=== PATIENT | female | born 1980 | race American Indian/Alaskan Native ===

== ENCOUNTER 2021-11-27 21:51 | Emergency (ER) | payer OTHER ==
[2021-11-27 23:23] LABS: Basophils % (Auto) 0.6 % (0.0-1.8); Eosinophils # (Auto) 0.1 K/mm3 (0.0-0.4); Eosinophils % (Auto) 1.1 % (0.0-4.3); Hematocrit 40.2 % (30.3-42.9); Hemoglobin 13.3 gm/dl (10.1-14.3); Lymphocytes # (Auto) 2.2 K/mm3 (1.2-5.4); Lymphocytes % (Auto) 44.2 % (13.4-35.0); Mean Corpuscular HGB Conc 33 % (30-34); Mean Corpuscular Volume 102 fl (79-97); Monocytes # (Auto) 0.6 K/mm3 (0.0-0.8); Monocytes % (Auto) 12.2 % (0.0-7.3); Platelet Count 370 K/mm3 (140-440); Red Blood Count 3.96 M/mm3 (3.65-5.03); Red Cell Distribution Width 13.8 % (13.2-15.2)
[2021-11-27 23:48] LABS: Alanine Aminotransferase 24 units/L (7-56); Albumin 4.2 g/dL (3.9-5); BUN/Creatinine Ratio 11; Blood Urea Nitrogen 9 mg/dL (7-17); Calcium 9.4 mg/dL (8.4-10.2); Hemolysis Index 66
--- NOTE | 2021-11-28 00:01 | Emergency Department Report ---
<MARISSA MCKEON - Last Filed: 11/28/21 06:02> ED Psych HPI - General Chief Complaint: Medical Clearance Stated Complaint: HIGH BLOOD PRESSURE Time Seen by Provider: 11/27/21 23:36 Source: patient, EMS Mode of arrival: Ambulatory Limitations: No Limitations - History of Present Illness Initial Comments: 41-year-old female the past medical history of schizophrenia, hypertension, and daily alcohol use presents to the hospital for medical clearance to go to [place]. Patient states she was attempting to go to [place] to be restarted on her psychiatric medication and for help with alcohol use. She was found to be hypertensive upon presentation to [facility] and therefore transferred to the hospital for medical clearance. Patient is noncompliant with all medications including antihypertensive medications. She complained of a headache which was worse earlier but since improved. No present nausea, vomiting, blurry vision, focal weakness, or numbness. She current denies auditory visual hallucinations, suicidal ideation, homicidal ideation. Last drink was 7 to 8 hours prior to ED presentation. She does not report tremors at this time - Related Data Previous Rx's Medication Instructions Recorded Last Taken Type Amlodipine Besylate [Norvasc] 5 mg PO DAILY #30 tab 11/28/21 Unknown Rx Allergies Allergy/AdvReac Type Severity Reaction Status Date / Time sulfamethoxazole Allergy Hives Verified 11/27/21 22:10 [From Bactrim] trimethoprim [From Bactrim] Allergy Hives Verified 11/27/21 22:10 ED Review of Systems Comment: All other systems reviewed and negative ED Past Medical Hx - Social History Smoking Status: Never Smoker Substance Use Type: Alcohol - Medications Home Medications: Home Medications Medication Instructions Recorded Confirmed Last Taken Type Amlodipine Besylate [Norvasc] 5 mg PO DAILY #30 tab 11/28/21 Unknown Rx ED Physical Exam - General Limitations: No Limitations - Other Other exam information: General: No acute distress Head: Atraumatic Eyes: normal appearance ENT: Moist mucous membranes Neck: Normal appearance, no midline tenderness Chest: Clear to auscultation bilaterally CV: Regular rate and rhythm Abdomen: Soft, normal bowel sounds, nontender, nondistended, no rebound or guarding Back: Normal inspection Extremity: Normal inspection, full range of motion Neuro: Alert O x 3, no facial asymmetry, speech clear, no gross motor sensory deficit, no tremor Psych: Appropriate behavior Skin: No rash ED Course - Reevaluation(s) Reevaluation #1: 11/28/21 00:01 BP and heart rate improved without meds ED Medical Decision Making - Lab Data Result diagrams: 11/27/21 22:52 11/27/21 22:52 - Radiology Data Radiology results: report reviewed CT HEAD WITHOUT CONTRAST INDICATION / CLINICAL INFORMATION: Headache with Hypertension. TECHNIQUE: All CT scans at this location are performed using CT dose reduction for ALARA by means of automated exposure control. COMPARISON: None available. FINDINGS: HEMORRHAGE: None. EXTRA-AXIAL SPACES: Normal in size and morphology for the patient's age. VENTRICULAR SYSTEM: Normal in size and morphology for the patient's age. CEREBRAL PARENCHYMA: No significant abnormality. No acute territorial infarct. MIDLINE SHIFT / HERNIATION: None. CEREBELLUM / BRAINSTEM: No significant abnormality. ORBITS: Normal as visualized SOFT TISSUES: No significant abnormality. SKULL: No significant abnormality. PARANASAL SINUSES / MASTOID AIR CELLS: Normal as visualized ADDITIONAL FINDINGS: None. IMPRESSION: 1. No acute intracranial abnormality. - Medical Decision Making 41-year-old female with schizophrenia and alcohol abuse presents to the hospital after being sent by [facility] for medical clearance. Hypertension and elevated blood pressure improved spontaneously without intervention. Patient has a history of chronic hypertension has been noncompliant with medications. Patient is not on a 1013. We will request mental health evaluation in the morning. Urine collection pending Critical Care Time: No ED Disposition Clinical Impression: Medical clearance for psychiatric admission Disposition: 01 HOME / SELF CARE / HOMELESS Is pt being admited?: No Does the pt Need Aspirin: No Condition: Stable Instructions: Alcohol Use Disorder, Schizophrenia, Hypertension (ED) Prescriptions: Amlodipine Besylate [Norvasc] 5 mg PO DAILY #30 tab <LILIYA HOWARD - Last Filed: 11/28/21 12:25> ED Review of Systems ROS: Stated complaint: HIGH BLOOD PRESSURE Other details as noted in HPI ED Course Vital Signs 11/27/21 11/27/21 11/27/21 22:03 22:24 22:26 Temperature 97.3 F L 97.3 F L Pulse Rate 110 H 77 Respiratory 15 17 Rate Blood Pressure 164/84 Blood Pressure 165/105 [Right] O2 Sat by Pulse 100 100 100 Oximetry 11/27/21 11/27/21 11/27/21 22:30 22:46 23:00 Temperature Pulse Rate 74 67 73 Respiratory 15 13 12 Rate Blood Pressure 167/105 142/86 132/89 Blood Pressure [Right] O2 Sat by Pulse 98 98 97 Oximetry 11/27/21 11/27/21 11/27/21 23:16 23:30 23:46 Temperature Pulse Rate 80 68 73 Respiratory 14 20 13 Rate Blood Pressure 148/94 142/83 156/84 Blood Pressure [Right] O2 Sat by Pulse 97 98 99 Oximetry 11/28/21 11/28/21 11/28/21 00:00 00:04 00:15 Temperature Pulse Rate 87 72 82 Respiratory 14 12 14 Rate Blood Pressure 127/77 127/90 Blood Pressure 127/77 [Right] O2 Sat by Pulse 96 100 95 Oximetry 11/28/21 11/28/21 11/28/21 00:30 00:46 01:00 Temperature Pulse Rate 73 69 67 Respiratory 12 17 13 Rate Blood Pressure 127/90 131/87 127/90 Blood Pressure [Right] O2 Sat by Pulse 98 97 98 Oximetry 11/28/21 11/28/21 11/28/21 01:16 01:30 01:46 Temperature Pulse Rate 68 71 69 Respiratory 12 14 12 Rate Blood Pressure 120/75 131/78 133/95 Blood Pressure [Right] O2 Sat by Pulse 98 95 99 Oximetry 11/28/21 11/28/21 11/28/21 02:00 02:16 02:30 Temperature Pulse Rate 64 61 62 Respiratory 12 12 11 L Rate Blood Pressure 118/77 117/77 124/79 Blood Pressure [Right] O2 Sat by Pulse 99 99 99 Oximetry 11/28/21 11/28/21 11/28/21 02:46 03:00 03:16 Temperature Pulse Rate 63 64 59 L Respiratory 13 13 12 Rate Blood Pressure 119/78 123/82 141/84 Blood Pressure [Right] O2 Sat by Pulse 99 100 99 Oximetry 11/28/21 11/28/21 11/28/21 03:30 03:46 04:00 Temperature Pulse Rate 45 L 60 63 Respiratory 12 12 11 L Rate Blood Pressure 140/70 115/76 115/76 Blood Pressure [Right] O2 Sat by Pulse 99 99 98 Oximetry 11/28/21 11/28/21 11/28/21 05:20 05:30 05:46 Temperature Pulse Rate Respiratory Rate Blood Pressure 158/86 158/86 169/111 Blood Pressure [Right] O2 Sat by Pulse 97 90 98 Oximetry 11/28/21 11/28/21 11/28/21 06:00 06:16 06:30 Temperature Pulse Rate Respiratory Rate Blood Pressure 130/88 128/91 176/107 Blood Pressure [Right] O2 Sat by Pulse 99 100 100 Oximetry 11/28/21 11/28/21 11/28/21 06:46 06:59 07:00 Temperature Pulse Rate Respiratory Rate Blood Pressure 143/85 134/92 134/96 Blood Pressure [Right] O2 Sat by Pulse 100 92 Oximetry 11/28/21 11/28/21 11/28/21 07:16 07:30 07:46 Temperature Pulse Rate Respiratory Rate Blood Pressure 176/107 168/84 142/82 Blood Pressure [Right] O2 Sat by Pulse 96 99 98 Oximetry 11/28/21 11/28/21 11/28/21 07:52 08:00 08:16 Temperature Pulse Rate Respiratory Rate Blood Pressure 127/79 Blood Pressure [Right] O2 Sat by Pulse 98 98 98 Oximetry 11/28/21 11/28/21 08:30 08:40 Temperature 98.6 F Pulse Rate 57 L Respiratory 17 Rate Blood Pressure Blood Pressure 124/71 [Right] O2 Sat by Pulse 96 99 Oximetry ED Medical Decision Making - Lab Data Result diagrams: 11/27/21 22:52 11/27/21 22:52 - Medical Decision Making Mental health evaluation complete. No inpatient treatment recommended at this time. Patient stable for discharge home. Critical care attestation.: If time is entered above; I have spent that time in minutes in the direct care of this critically ill patient, excluding procedure time.
--- NOTE | 2021-11-28 00:43 | Cat Scan Report ---
CT HEAD WITHOUT CONTRAST INDICATION / CLINICAL INFORMATION: Headache with Hypertension. TECHNIQUE: All CT scans at this location are performed using CT dose reduction for ALARA by means of automated exposure control. COMPARISON: None available. FINDINGS: HEMORRHAGE: None. EXTRA-AXIAL SPACES: Normal in size and morphology for the patient's age. VENTRICULAR SYSTEM: Normal in size and morphology for the patient's age. CEREBRAL PARENCHYMA: No significant abnormality. No acute territorial infarct. MIDLINE SHIFT / HERNIATION: None. CEREBELLUM / BRAINSTEM: No significant abnormality. ORBITS: Normal as visualized SOFT TISSUES: No significant abnormality. SKULL: No significant abnormality. PARANASAL SINUSES / MASTOID AIR CELLS: Normal as visualized ADDITIONAL FINDINGS: None. IMPRESSION: 1. No acute intracranial abnormality. Signer Name: Quentin Sampson DO Signed: 11/28/2021 12:39 AM Workstation Name: [id number]
[2021-11-28] MEDS ORDERED: THIAMINE 100 MG, FOLIC ACID 1 MG, MULTIPLE VITAMIN INJ, ADULT 10 ML in SODIUM CHLORIDE ... IV ONE (04:25)
[2021-11-28] MEDS ORDERED: amLODIPine 5 MG TAB PO ONE (06:02)
[2021-11-28 06:50] LABS: Bilirubin,Urine NEG (Negative); Blood,Urine SM (Negative); Color,Urine Yellow (Yellow); Protein,Urine <15 mg/dL mg/dL (Negative)
[2021-11-28 06:59] LABS: Amphetamine Screen,Urine Negative; Benzodiazepines Screen,Urine Negative; Cannabinoid Screen,Urine Negative; Methadone Screen,Urine Negative; Opiate Screen,Urine Negative
[2021-11-28 07:13] LABS: Amorphous Crystals,Urine 1+; Bacteria,Urine 4+ /HPF (Negative); Mucus,Urine 3+ /HPF; RBC,Urine < 1.0 /HPF (0.0-6.0); Renal Epithelial Cells,Urine 1 /LPF
[2021-11-28 07:25] LABS: Cocaine Screen,Urine Positive
--- NOTE | 2021-11-28 12:08 | Consultation ---
History of Present Illness - Reason for Consult Consult date: 11/28/21 Reason for consult: mental heal[facility] evaluation - History of Present Psychiatric Illness HPI: 41-year-old female the past medical history of schizophrenia, hypertension, and daily alcohol use presents to the hospital for medical clearance to go to [place]. Patient states she was attempting to go to [place] to be restarted on her psychiatric medication and for help with alcohol use. She was found to be hypertensive upon presentation to [facility] and therefore transferred to the hospital for medical clearance. Patient is noncompliant with all medications including antihypertensive medications. She complained of a headache which was worse earlier but since improved. No present nausea, vomiting, blurry vision, focal weakness, or numbness. She current denies auditory visual hallucinations, suicidal ideation, homicidal ideation. Last drink was 7 to 8 hours prior to ED presentation. She does not report tremors at this time. The patient was seen this morning. She is calm, alert and oriented x4. The patient states she came from [facility] for medical clearance. The patient endorses depression but no suicidal ideation. She states she has noncommand auditory hallucinations. PAST PSYCHIATRIC HISTORY Diagnoses: schizophrenia, Bipolar Suicide attempts or Self-harm behavior:Yes Prior psychiatric hospitalizations: Yes Substance Abuse history: Alcohol, marijuana Previous psychiatric medications tried:Tegretol, Seroquel Outpatient treatment: Yes PAST MEDICAL HISTORY: none reported Family Psychiatric History: None reported or documented SOCIAL HISTORY Marital Status: Single Living Arrangements: Homeless Employment Status: unemployed Access to guns/weapons: Denies Education: College History of Abuse: none reported Legal History: none reported REVIEW OF SYSTEMS Constitutional: Negative for weight loss ENT: Negative for stridor Respiratory: Negative for cough or hemoptysis All other systems reviewed and are negative MENTAL STATUS EXAMINATION General Appearance and Behavior: Age appropriate, good hygiene, wearing appro priate clothes,good eye contact, cooperative polite with questioning. Cooperation: Participating/engaged, guarded Psychomotor Behavior: unremarkable and within normal limits Mood: Calm Affect and affective range: congruent with mood Thought Process: Goal directed Thought Content: reality oriented Speech: Normal volume, Regular rate and rhythm, Suicidal Ideation: Denies Homicidal Ideation: Denies Hallucinations: Denies Delusions: None Impulse Control: Questionable Insight and Judgment: Good insight and judgment, Memory: Normal, Attention: Normal, Orientation: Alert, oriented, Assessment and Plan (1) Hx Schizophrenia Treatment Continue home meds. Sitter: Per primary Medical: Per primary Disposition: Do not recommend acute inpatient psychiatric treatment. Will sign off. Thanks Case staffed with Dr. Grigsby Medications and Allergies Medications and Allergies Allergies Allergy/AdvReac Type Severity Reaction Status Date / Time sulfamethoxazole Allergy Hives Verified 11/27/21 22:10 [From Bactrim] trimethoprim [From Bactrim] Allergy Hives Verified 11/27/21 22:10 Home Medications Medication Instructions Recorded Confirmed Last Taken Type Amlodipine Besylate [Norvasc] 5 mg PO DAILY #30 tab 11/28/21 Unknown Rx Mental Status Exam - Vital signs Last Vital Signs Temp 98.6 F 11/28/21 08:40 Pulse 57 L 11/28/21 08:40 Resp 17 11/28/21 08:40 BP 124/71 11/28/21 08:40 Pulse Ox 99 11/28/21 08:40 Results Result Diagrams: 11/27/21 22:52 11/27/21 22:52 Abnormal lab results 11/27/21 11/27/21 11/27/21 Range/Units 22:52 22:52 22:52 MCV 102 H (79-97) fl MCH 34 H (28-32) pg Lymph % (Auto) 44.2 H (13.4-35.0) % [place] % (Auto) 12.2 H (0.0-7.3) % Urine WBC (Auto) (0.0-6.0) /HPF U Epithel Cells (Auto) (0-13.0) /HPF Salicylates < 0.3 L (2.8-20.0) mg/dL Acetaminophen 5.0 L (10.0-30.0) ug/mL 11/28/21 Range/Units 05:30 MCV (79-97) fl MCH (28-32) pg Lymph % (Auto) (13.4-35.0) % [place] % (Auto) (0.0-7.3) % Urine WBC (Auto) 12.0 H (0.0-6.0) /HPF U Epithel Cells (Auto) 17.0 H (0-13.0) /HPF Salicylates (2.8-20.0) mg/dL Acetaminophen (10.0-30.0) ug/mL All other labs normal.
[2021-11-28 13:01] VITALS: BP 118/62
== END 2021-11-28 13:02 | disposition home or self-care (01) ==
LOC: ED 21:51
DX: I10 Essential (primary) hypertension (principal); Z13.30 Encounter for screening examination for mental health and behavioral disorders, unspecified; Z88.2 Allergy status to sulfonamides; F10.20 Alcohol dependence, uncomplicated
CPT/HCPCS: 36415; 70450; 80053; 80307; 81001; 83735; 84703; 85025; 96365; 99284; J3411; J3490; J7030; 80320; 87086; G0480

== ENCOUNTER 2021-12-26 17:17 | Emergency (ER) | payer OTHER ==
[2021-12-26 17:40] VITALS: BP 181/117
== END 2021-12-26 22:31 ==
LOC: ED 17:17
DX: I10 Essential (primary) hypertension (principal); Z53.21 Procedure and treatment not carried out due to patient leaving prior to being seen by health care provider